=== PATIENT | female | born 1975 | race Caucasian/White ===

== ENCOUNTER 2023-05-13 14:14 | Outpatient (OUT) | payer OTHER, SELFPAY ==
--- NOTE | 2023-05-13 | XR_ITS ---
The [address] [address] Patient Name: MICK RODRIGUEZ MRN: [id number] date: 1975 Sex: F Assigned Patient Location: [facility] Current Patient Location: Accession/Order Number: [id number] Exam Date: 05/13/2023 14:32 Report Date: 05/14/2023 05:00 At the request of: MAX COPPOLA Procedure: XR foot RT min 3V PROCEDURE: XR foot RT min 3V HISTORY: RIGHT FOOT PAIN. ; Follow-up fifth metatarsal fracture COMPARISON: XR foot right 04/21/2023 FINDINGS: BONES:Oblique fracture through the fifth metatarsal mid diaphysis with 3.5 mm dorsal medial displacement. Slight increased density of the fracture line. No significant callus formation along the margins. SOFT TISSUES:Mild lateral soft tissue swelling. EFFUSION:None visible. OTHER: Negative. XR/XR foot RT min 3V IMPRESSION: 1. Stable mildly displaced subacute oblique fracture of the fifth metatarsal. Suspect changes of early bone healing. Electronically authenticated by: BELLA CAMACHO Date: 05/14/2023 05:00
== END 2023-05-13 14:15 | disposition home or self-care (01) ==
LOC: RAD 14:14
PROVIDERS: Visit Provider Physician Assistant
DX: S92.351A Displaced fracture of fifth metatarsal bone, right foot, initial encounter for closed fracture (principal)
CPT/HCPCS: 73630

== ENCOUNTER 2023-06-03 13:52 | Outpatient (OUT) | payer OTHER, SELFPAY ==
--- NOTE | 2023-06-03 | XR_ITS ---
The [address] [address] Patient Name: MICK RODRIGUEZ MRN: [id number] date: 1975 Sex: F Assigned Patient Location: [facility] Current Patient Location: [facility] Accession/Order Number: [id number] Exam Date: 06/03/2023 14:14 Report Date: 06/03/2023 15:24 At the request of: MAX COPPOLA Procedure: XR foot RT min 3V EXAM: XR foot RT min 3V HISTORY: RIGHT FOOT PAIN . Follow-up study. COMPARISON: 05/13/2023 TECHNIQUE: 3 views of the right foot were obtained. FINDINGS: Again seen is the oblique, slightly impacted and slightly angulated fracture the mid shaft of the fifth metatarsal bone. There is now evidence of ongoing osseous healing, while the fracture line remains visible. There is no other evidence of an acute fracture or dislocation. Mild hallux valgus is noted at the first metatarsophalangeal joint. XR/XR foot RT min 3V IMPRESSION: Healing fracture of the fifth metatarsal bone. Position and alignment of the major fracture fragments are unchanged. Electronically authenticated by: AYESHA GUSMAN Date: 06/03/2023 15:24
== END 2023-06-03 13:53 | disposition home or self-care (01) ==
LOC: RAD 13:52
PROVIDERS: Visit Provider Physician Assistant
DX: S92.351A Displaced fracture of fifth metatarsal bone, right foot, initial encounter for closed fracture (principal)
CPT/HCPCS: 73630

== ENCOUNTER 2023-06-10 09:11 | Outpatient (OUT) | payer OTHER, SELFPAY ==
--- NOTE | 2023-06-10 09:21 | XR_ITS ---
The [address] [address] Patient Name: MICK RODRIGUEZ MRN: [id number] date: 1975 Sex: F Assigned Patient Location: [facility] Current Patient Location: [facility] Accession/Order Number: [id number] Exam Date: 06/10/2023 09:26 Report Date: 06/10/2023 10:05 At the request of: MALGORZATA LYONS Procedure: XR chest 2V EXAM: XR chest 2V HISTORY: Moderate Persistent Asthma With Acute Exacerbation J45.41 COMPARISON: None. TECHNIQUE: PA and lateral views of the chest. FINDINGS: The cardiomediastinal silhouette is normal. No focal consolidation is identified. There is no pneumothorax. No pleural effusion is noted. The osseous structures are intact. XR/XR chest 2V IMPRESSION: No acute cardiopulmonary process. Electronically authenticated by: TARUN MONTALVO Date: 06/10/2023 10:05
== END 2023-06-10 09:12 | disposition home or self-care (01) ==
LOC: RAD 09:16
PROVIDERS: PCP Nurse Practitioner Family; Visit Provider Nurse Practitioner Family
DX: J45.41 Moderate persistent asthma with (acute) exacerbation (principal); R05.1 Acute cough; R09.89 Other specified symptoms and signs involving the circulatory and respiratory systems
CPT/HCPCS: 71046

== ENCOUNTER 2023-06-25 15:42 | Outpatient (OUT) | payer OTHER, SELFPAY ==
--- NOTE | 2023-06-25 | XR_ITS ---
The [address] [address] Patient Name: MICK RODRIGUEZ MRN: [id number] date: 1975 Sex: F Assigned Patient Location: [facility] Current Patient Location: [facility] Accession/Order Number: [id number] Exam Date: 06/25/2023 13:40 Report Date: 06/25/2023 17:20 At the request of: AYESHA BLAKE Procedure: XR foot RT min 3V EXAM: XR foot RT min 3V HISTORY: FX OF 5TH MET FX COMPARISON: 06/03/2023 TECHNIQUE: 3 views of the right foot FINDINGS: No significant interval change in an oblique, displaced fracture of the fifth metatarsal shaft with 0.2 cm gap between the fracture fragments. Mild callus formation is noted and is similar to the prior study. There is no acute fracture or dislocation. XR/XR foot RT min 3V IMPRESSION: No significant interval change in an oblique, displaced fifth metatarsal shaft fracture as described above. Electronically authenticated by: JOANNE HOPSON Date: 06/25/2023 17:20
== END 2023-06-25 15:43 | disposition home or self-care (01) ==
LOC: RAD 15:42
PROVIDERS: PCP Nurse Practitioner Family; Visit Provider Podiatrist Foot & Ankle Surgery
DX: S92.351A Displaced fracture of fifth metatarsal bone, right foot, initial encounter for closed fracture (principal)
CPT/HCPCS: 73630